=== PATIENT | female | born 1995 | race Caucasian/White ===

== ENCOUNTER 2016-10-01 13:07 | Emergency (ER) | payer OTHER ==
[~2016-10-01] VITALS: Ht 157.4 cm; Wt 54.4 kg
[~2016-10-01 13:07] MED LIST: HYDROCODONE BIT1 T11 PO; NAPROSYN500 MG PO
[2016-10-01 14:05] LABS: BILIRUBIN NEGATIVE (NEGATIVE); BLOOD NEGATIVE (NEGATIVE); CLARITY SL CLOUDY (CLEAR); COLOR YELLOW (YELLOW); GLUCOSE NEGATIVE (NEGATIVE); KETONE TRACE (NEGATIVE); LEUKO ESTERASE TRACE (NEGATIVE); NITRITE NEGATIVE (NEGATIVE); PROTEIN NEGATIVE (NEGATIVE); SPECIFIC GRAVITY 1.025 (1.005-1.030)
[2016-10-01 14:16] LABS: MUCOUS 1+; URINE REFLEX COMMENT YES (NO)
[2016-10-01] MEDS ORDERED: PYRIDIUM200 M1 PO (14:26)
[2016-10-01] MEDS ORDERED: DIFLUCAN150 MG PO (14:26)
[2016-10-01] MEDS ORDERED: MACROBID100 M1 PO (14:26)
== END 2016-10-01 14:27 | disposition home or self-care (01) ==
LOC: ED 13:07
PROVIDERS: Nurse Practitioner Family
DX: N39.0 Urinary tract infection, site not specified (principal)